=== PATIENT | female | born 1970 | race Asian ===

== ENCOUNTER 2019-03-12 21:32 | Emergency (ER) | payer SELFPAY ==
[~2019-03-12] VITALS: Ht 149.9 cm; Wt 54.4 kg
[2019-03-12 21:41] VITALS: BP_SYST 142
== END 2019-03-12 23:15 | disposition left against medical advice (07) ==
LOC: SED 21:32
DX: I10 Essential (primary) hypertension (principal); Z53.21 Procedure and treatment not carried out due to patient leaving prior to being seen by health care provider